=== PATIENT | female | born 1975 | race Caucasian/White ===

== ENCOUNTER 2020-01-16 20:48 | Observation (INO) | payer OTHER, SELFPAY ==
[2020-01-16 20:56] VITALS: BP 111/79; PULSE 81; RESP 15; TEMP 36.6; O2SAT 99
--- NOTE | 2020-01-16 21:09 | ED.GENADULT ---
HPI - General Adult General Chief complaint: Unspecified Stated complaint: FOOD BOLUS Time Seen by Provider: 01/16/20 20:53 History of Present Illness HPI narrative: Patient presents with her for a food bolus in her throat. It was steak. Happened about 6 PM. She vomited some of it. She has had this before. She has had multiple endoscopies and dilatation. Her GI doctor is in [facility]. She gauges the pain at 9 out of 10. She has MS. She has not been sick otherwise. She does not smoke cigarettes, rarely drinks alcohol, does not do drugs. Onset (ago): hour(s) Radiation: non-radiation Severity: severe Severity scale (1-10): 9 Pain Consistency: constant Relieving factors: none Exacerbating factors: other (Vomiting) Associated symptoms: denies other symptoms Related Data Home Medications Medication Instructions Recorded Confirmed dextroamphetamine-amphetamine 20 mg PO DAILY 01/16/20 [Adderall XR] gabapentin 200 mg PO TID 01/16/20 pantoprazole 40 mg PO DAILY 01/16/20 Allergies Allergy/AdvReac Type Severity Reaction Status Date / Time No Known Allergies Allergy Verified 01/16/20 21:29 Review of Systems Review of Systems: Narrative: CONSTITUTIONAL: Denies fever, chills, or sweats. EYES: Denies visual changes, redness, or discharge. ENT: Denies rhinorrhea, congestion, sore throat, or otalgia. CARDIOVASCULAR: She has chest pain at the lower sternum, but not palpitations, or edema. RESPIRATORY: Denies cough or dyspnea. GASTROINTESTINAL: Denies abdominal pain, nausea, vomiting, or diarrhea. GENITOURINARY: Denies dysuria or hematuria. SKIN: Denies rash or itching. MUSCULOSKELETAL: Denies back pain, joint pain, or myalgia. NEUROLOGIC: Denies headache, numbness, or weakness. . All systems reviewed & are unremarkable except as noted in HPI and below PMFSH Social History Social History (Updated 01/16/20 @ 21:12 by Vanessa Amos MD) Smoking status: Never smoker Alcohol intake: current Substance use: never Exam Narrative: Exam Narrative: GENERAL: Well-appearing, well-nourished, in moderate distress. Has a basin with saliva. HEAD: Normocephalic, atraumatic. EYES: PERRLA and EOMI. ENT: Nares clear, no rhinorrhea or epistaxis. Mucous membranes moist. NECK: Supple. CHEST: Clear to auscultation. No respiratory distress. HEART: Regular rate and rhythm. No murmur heard. Normal peripheral pulses. ABDOMEN: Soft, nontender, nondistended, normal active bowel sounds. EXTREMITIES: Normal range of motion. No edema. SKIN: Warm, dry, no rash. NEURO: No focal deficits. Alert and oriented x3. PSYCH: Normal mood and affect. Course Reevaluation(s) Reevaluation #1: Patient feels better after the first glucagon, she says the pressure has decreased, and she is not been spitting up anymore saliva. I challenged her with a drink of water, which only stayed down a short time before came back up. We will give the second dose of glucagon before calling the GI specialist. Date: 01/16/20 Time: 21:57 Consultations Consultation #1: Call Dr. Gilbert and he request the patient be put in under the hospitalist for overnight observation and he will see her in the morning. Date: 01/16/20 Time: 23:24 Consultation #2: Call Dr. Treadwell and she agrees with the observation admission for fluid bolus. Date: 01/16/20 Time: 23:25 Vital Signs Vital signs: Vital Signs Temperature 97.8 F 01/16/20 20:56 Pulse Rate 81 01/16/20 20:56 Respiratory Rate 15 01/16/20 20:56 Blood Pressure 111/79 01/16/20 20:56 Pulse Oximetry 99 01/16/20 20:56 Temperature 97.8 F 01/16/20 20:56 Pulse Rate 73 01/16/20 22:33 Respiratory Rate 16 01/16/20 22:33 Blood Pressure 114/81 01/16/20 22:33 Pulse Oximetry 100 01/16/20 22:33 Medical Decision Making Medical Records Medical records reviewed: Yes I reviewed the patient's medical records. Vital Signs Vital Signs: Vital Signs Temperature 97.8 F 01/16/20
[2020-01-16] MEDS: FAMOTIDINE 20 MG/2 ML VIAL IV PUSH (21:29)
[2020-01-16] MEDS: SODIUM CHLORIDE 0.9% IV 1,000 ML 250 ML IV CONT (21:29)
[2020-01-16] MEDS: GLUCAGON FOR INJ 1 MG VIAL IV PUSH (21:30)
[2020-01-16 21:41] LABS: Basophils Absolute Auto 0.1 K/mm3 (0.0-0.1); Basophils Percent Auto 0.8 % (0.2-1.2); Eosinophils Absolute Auto 0.4 K/mm3 (0-0.3); Eosinophils Percent Auto 4.8 % (0-4.4); Hematocrit 38.5 % (37.0-47.0); Immature Granulocyte Absolute 0.02 K/mm3 (0.00-0.031); Immature Granulocyte Percent A 0.2 % (0-0.5); Lymphocytes Absolute Auto 1.83 K/mm3 (0.9-3.2); Lymphocytes Percent Auto 19.9 % (18.3-44.2); Mean Corpuscular HGB Conc 33.8 g/dl (32-36); Mean Corpuscular Volume 91.9 fl (80-100); Mean Platelet Volume 11.1 fl (7.4-10.4); Monocytes Absolute Auto 0.5 K/mm3 (0.1-0.6); Monocytes Percent Auto 4.9 % (2.6-8.5); Neutrophils Absolute Auto 6.4 K/mm3 (1.3-6.7); Neutrophils Percent Auto 69.4 % (45.5-73.1); Platelet Count Result 267 k/mm3 (150-375); Red Blood Count 4.19 M/mm3 (4.2-5.4); Red Cell Distribution Width 12.9 % (11.5-14.5); White Blood Count 9.2 K/mm3 (4.5-10.0)
[2020-01-16 21:57] LABS: Alanine Aminotransferase 55 U/L (4-35); Albumin Level 4.2 g/dL (3.5-5.1); Alkaline Phosphatase 79 U/L (38-126); Anion Gap 9 mmol/L (8-16); Aspartate Amino Transferase 41 U/L (14-36); Bilirubin,Total 0.3 mg/dL (0.2-1.3); Blood Urea Nitrogen 17 mg/dL (7-17); Carbon Dioxide 24 mmol/L (22-30); Chloride 104 mmol/L (98-107); Estimated Glomerular Filt Rate > 60; Glucose 93 mg/dL (65-105); Potassium 3.8 mmol/L (3.4-5.0); Sodium 137 mmol/L (137-145)
[2020-01-16] MEDS: GLUCAGON FOR INJ 1 MG VIAL IM (21:58)
[2020-01-16 22:13] LABS: Calcium 9.3 mg/dL (8.4-10.2)
[2020-01-16 22:33] VITALS: BP 114/81; PULSE 73; RESP 16; O2SAT 100
[2020-01-16] MEDS: DEXTROSE 5%/0.9% SOD CHL 1,000 ML 100 ML IV CONT (23:22)
[2020-01-16] MEDS: MORPHINE SULFATE 4 MG/ML INJ IV PUSH (23:23)
[2020-01-16 23:30] VITALS: BP 135/80; PULSE 83; RESP 18; O2SAT 100
[2020-01-17] VITALS (10 sets, daily range): BP systolic 92–135; BP diastolic 52–70; PULSE 66–83; RESP 14–21; TEMP 36.3–37; O2SAT 98–100; BMI 29.0
--- NOTE | 2020-01-17 00:32 | ADMGEN ---
This patient, Selma Morgan, was admitted to 3 [facility] 345-. Patient/family oriented to hospital policies and general routines including ID bracelet, bed and alarms, visiting hours, pain management, procedures, bathroom and other care routines, personal items, smoking policy, room service/diet, and visiting hours. Valuables list has been completed. Information on how to activate the Rapid Response Team has been discussed. Patient/Family are encouraged to report perceived risks to care and to ask questions if they do not understand what they are told or what they should do.
[2020-01-17] MEDS: MORPHINE SULFATE 4 MG/ML INJ IV PUSH (02:40)
[2020-01-17] MEDS: ONDANSETRON INJ 4 MG/2 ML VIAL IV PUSH (02:41)
--- NOTE | 2020-01-17 09:34 | WPDGICN ---
Assessment and Plan Assessment and plan (1) Food impaction of esophagus: Qualifiers: Encounter type: initial encounter Qualified Code(s): T18.128A - Food in esophagus causing other injury, initial encounter Code(s): T18.128A - Food in esophagus causing other injury, initial encounter Status: Acute Assessment and Plan: Patient has a food impaction unable to eat or swallow. Plan is for EGD today. Further recommendations after endoscopy. (2) Dysphagia: Code(s): R13.10 - Dysphagia, unspecified Status: Acute Assessment and Plan: Patient has a history of recurrent difficulty swallowing. Known to have esophageal stricture ring in the past. This been attributed to what sounds like eosinophilic esophagitis. Plan is to continue proton pump inhibitor. Further recommendations after endoscopy. Old records not immediately available. (3) Eosinophilic esophagitis: Code(s): K20.0 - Eosinophilic esophagitis Status: Acute (4) Multiple sclerosis: Code(s): G35 - Multiple sclerosis Status: Acute GI Consult Note Consult date/time: 01/17/20 09:34 HPI: Selma Morgan is a 44 year old female Seen in evaluation at the request of the emergency room. Patient in usual state of health till last evening on eating dinner had a piece of food stuck in the mid substernal portion of the chest. she subsequently was unable to eat or swallow any additional intake. She presented the emergency room and was admitted for observation. She does have a past medical history of esophagitis. She has a known history of esophageal stricture ring as required esophageal dilatation in the past. She often will have food passed slowly through the esophagus. Her last endoscopy for dilatation was approximately 1 year ago. She was told that she had an allergic type esophageal reaction. She has been told to take proton pump inhibitors on a regular basis at home. She denies any weight loss or bleeding. She has no specific known allergies. Review of Systems Review of Systems: All systems reviewed & are unremarkable except as noted in HPI and below PMFSH Social History Social History Smoking status: Never smoker Second hand tobacco smoke exposure: No Alcohol intake: former Substance use: current Substance use type: marijuana Other substance usage details: medical marijuana Gender identity (if verbalized by the patient): Female Spiritual care concerns: No Meds Home Medications and Allergies Home Medications Medication Instructions Recorded Confirmed Type dextroamphetamine-amphetamine 20 mg PO DAILY 01/16/20 01/17/20 History [Adderall XR] gabapentin 200 mg PO TID 01/16/20 01/17/20 History pantoprazole 40 mg PO DAILY 01/16/20 01/17/20 History Allergies Allergy/AdvReac Type Severity Reaction Status Date / Time No Known Allergies Allergy Verified 01/16/20 21:29 Vital Signs Vital Signs - 24 hr 01/16/20 20:56 01/16/20 22:33 01/16/20 23:30 Temperature 97.8 F Pulse Rate 81 73 83 Respiratory Rate 15 16 18 Blood Pressure 111/79 114/81 135/80 Pulse Oximetry 99 100 100 01/17/20 00:46 01/17/20 05:38 Temperature 97.4 F L 97.7 F Pulse Rate 70 82 Respiratory Rate 16 16 Blood Pressure 135/70 92/52 L Pulse Oximetry 100 100 Exam Narrative: Exam Narrative: Physical exam reveals patient to be alert. Currently comfortable at rest. HEENT exam reveals her to be anicteric. She is alert. Lungs are clear. Heart without murmur. Abdomen bowel sounds are present soft nontender with no organomegaly. Digital rectal exam deferred at this time. Results Labs CBC & Chem 7: 01/16/20 21:35 01/16/20 21:35 Labs: Short CBC 01/16/20 Range/Units 21:35 WBC 9.2 (4.5-10.0) K/mm3 Hgb 13.0 (12.0-15.0) g/dL Hct 38.5 (37.0-47.0) % Plt Count 267 (150-375) k/mm3 B
--- NOTE | 2020-01-17 09:55 | PC.NURSE ---
To GI Lab via [employer].
[2020-01-17] MEDS: LACTATED RINGERS 1,000 ML 150 ML IV CONT (10:12)
--- NOTE | 2020-01-17 11:32 | WPDANESEPPF ---
Anes - Initial Pre Proc Eval Procedure: Operation Date: 01/17/20 11:00 Proposed Procedures p Esophagogastroduodenoscopy - Jacques Gilbert MD Date/Time: 01/17/20 11:32 Surgeon: Yulisa Davis PA-C Pre Op Diagnosis: food impaction Patient Data Age: 44 Gender: F Height: 5 ft 3 in Weight: 74.3 kg Last Vital Signs Temp 98.6 F 01/17/20 09:59 Pulse 72 01/17/20 09:59 Resp 18 01/17/20 09:59 BP 100/61 01/17/20 09:59 Pulse Ox 98 01/17/20 09:59 Allergies Allergy/AdvReac Type Severity Reaction Status Date / Time No Known Allergies Allergy Verified 01/16/20 21:29 Home Medications Medication Instructions Recorded Confirmed Type dextroamphetamine-amphetamine 20 mg PO DAILY 01/16/20 01/17/20 History [Adderall XR] gabapentin 200 mg PO TID 01/16/20 01/17/20 History pantoprazole 40 mg PO DAILY 01/16/20 01/17/20 History Laboratory Tests 01/16/20 01/16/20 21:35 21:35 WBC 9.2 K/mm3 K/mm3 (4.5-10.0) RBC 4.19 M/mm3 L M/mm3 (4.2-5.4) Hgb 13.0 g/dL g/dL (12.0-15.0) Hct 38.5 % % (37.0-47.0) MCV 91.9 fl fl (80-100) MCH 31.0 pg pg (26-34) MCHC 33.8 g/dl g/dl (32-36) RDW 12.9 % % (11.5-14.5) Plt Count 267 k/mm3 k/mm3 (150-375) MPV 11.1 fl H fl (7.4-10.4) Immature Gran % (Auto) 0.2 % % (0-0.5) Neut % (Auto) 69.4 % % (45.5-73.1) Lymph % (Auto) 19.9 % % (18.3-44.2) [place] % (Auto) 4.9 % % (2.6-8.5) Eos % (Auto) 4.8 % H % (0-4.4) Baso % (Auto) 0.8 % % (0.2-1.2) Lymph # (Auto) 1.83 K/mm3 K/mm3 (0.9-3.2) [place] # (Auto) 0.5 K/mm3 K/mm3 (0.1-0.6) Eos # (Auto) 0.4 K/mm3 H K/mm3 (0-0.3) Baso # (Auto) 0.1 K/mm3 K/mm3 (0.0-0.1) Abs Immat Gran (auto) 0.02 K/mm3 K/mm3 (0.00-0.031) Absolute Neuts (auto) 6.4 K/mm3 K/mm3 (1.3-6.7) Absolute Nucleated RBC 0.0 K/mm3 K/mm3 (0.0-0.012) Nucleated RBC % 0.0 % % (0.0-0.2) Sodium 137 mmol/L mmol/L (137-145) Potassium 3.8 mmol/L mmol/L (3.4-5.0) Chloride 104 mmol/L mmol/L (98-107) Carbon Dioxide 24 mmol/L mmol/L (22-30) Anion Gap 9 mmol/L mmol/L (8-16) BUN 17 mg/dL mg/dL (7-17) Creatinine 0.60 mg/dL L mg/dL (0.7-1.0) Estim Creat Clear Calc Not Reportable Estimated GFR > 60 (59 - ) Glucose 93 mg/dL mg/dL (65-105) Calcium 9.3 mg/dL mg/dL (8.4-10.2) Total Bilirubin 0.3 mg/dL mg/dL (0.2-1.3) AST 41 U/L H U/L (14-36) ALT 55 U/L H U/L (4-35) Alkaline Phosphatase 79 U/L U/L (38-126) Total Protein 7.0 g/dL g/dL (6.3-8.2) Albumin 4.2 g/dL g/dL (3.5-5.1) Patient hx anesthesia problems: none Family hx anesthesia problems: none [facility] Past Medical History Medical History (Updated 01/17/20 @ 11:31 by Beny Albright MD) Multiple sclerosis Social History Social History Smoking status: Never smoker Second hand tobacco smoke exposure: No Alcohol intake: former Substance use: current Substance use type: marijuana Other substance usage details: medical marijuana Gender identity (if verbalized by the patient): Female Spiritual care concerns: No Anes - Eval Final PreProcedure Day of Procedure 01/17/20 11:32 Patient weight: normal Heart: regular rate and rhythm Lungs: clear to auscultation Airway: Mallampati scale class II Neurological: alert and oriented Last oral intake: >/= 8 hours ASA classification: II Emergent: no Anesthetic plan: proceed Anesthesia type and monitoring: general GIVS and standard monitoring Informed Consent: The patient's anesthetic plan and its attendant risks and benefits were discussed with the patient/family/POA. Questions were solicited and answers provided to the satisfaction of the patient/family/POA.
--- NOTE | 2020-01-17 12:55 | PC.NURSE ---
Returned from GI Lab via stretcher.
[2020-01-17] MEDS: PANTOPRAZOLE 40 MG TABLET PO (14:09)
--- NOTE | 2020-01-17 15:01 | PM.SD ---
Same Day Admit/Disch: HPI History of Present Illness Chief complaint: food impaction Narrative: Selma Morgan is a 44 year old female with a history of eosinophilic esophagitis, status post multiple EGDs and dilation of her esophagus, MS, who presented to the emergency department after she had food stuck in her throat. The patient states last night she was cooking steak for dinner and she took 1 bite while she was getting her children's food ready and she instantly felt that the food got stuck in her throat. She tried coughing up the food and got only pieces. Otherwise was having some chest pressure, shortness of breath, unable to swallow liquids or her saliva. She decided to come to the emergency room for further evaluation and treatment. She denies much nausea but had been having vomiting trying to get the food up. She denies any fevers, chills, abdominal pain, diarrhea, constipation, leg swelling, calf pain, lightheadedness, dizziness, urinary symptoms or any other symptoms this time. Initial vitals showed temperature of 97.8?, blood pressure 111/79, heart rate 81, respiratory rate 15, oxygen saturation 99% on room air. Initial labs showed normal CBC with differential other than elevated eosinophils. CMP was normal other than slightly elevated LFTs with an AST of 41, ALT at 55. The patient was admitted into the hospital for further evaluation by GI specialist. code status: full code power of assistant county attorney: PMF Past Medical History Medical History Eosinophilic esophagitis Multiple sclerosis Surgical History Surgical History History of esophagogastroduodenoscopy (EGD) Hx of colonoscopy Hx of hysterectomy Family History Family History Father Acute myocardial infarction TIA (transient ischemic attack) Mother Eosinophilic esophagitis Social History Social History Smoking status: Never smoker Second hand tobacco smoke exposure: No Alcohol intake: former Substance use: current Substance use type: marijuana Other substance usage details: medical marijuana Living arrangements: with family Additional living arrangements comments: Lives with and children in [place], [place] Additional occupation/education comments: 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 Gender identity (if verbalized by the patient): Female Sexual Orientation (if Verbalized by the Patient): Straight or Heterosexual Spiritual care concerns: No Same Day Admit/Disch: Med Pre-admit Medications Home Medications Medication Instructions Recorded Confirmed Type dextroamphetamine-amphetamine 20 mg PO DAILY 01/16/20 01/17/20 History [Adderall XR] gabapentin 200 mg PO TID 01/16/20 01/17/20 History pantoprazole 40 mg PO DAILY 01/16/20 01/17/20 History Exam Narrative: Exam Narrative: General: 44-year-old woman laying flat in bed with head elevated at 45 degrees watching TV with at bedside. Appears comfortable. In no acute distress. Skin: No jaundice or cyanosis. Good skin turgor. Neck: Full range of motion. Supple. Respiratory: Lungs are clear to auscultation bilaterally. No bony chest wall tenderness. Cardiovascular: The heart has a regular rate and rhythm without murmur. No carotid bruits. Lower extremities: No lower extremity edema. Distal pulses are easily palpated. No calf tenderness to palpation. Gastrointestinal: The abdomen is soft, nontender and nondistended with active bowel sounds. Psychiatric: Lucid and oriented. Memory intact. Neurologic: No focal deficits. Speech is clear. No facial drooping. DS: Data Data Completed and Pending Labs on day of discharge: Labs from last 24 hours 01/16/20 01/16/20 21:35 21:35 WBC 9.2 RBC 4.19
== END 2020-01-17 16:20 | disposition home or self-care (01) ==
LOC: ANHED 23:01 → ANH3MED 23:21
PROVIDERS: Internal Medicine Gastroenterology; Admitting Provider Internal Medicine; Emergency Provider Emergency Medicine; PCP Nurse Practitioner Family; Visit Provider Internal Medicine
PROC: 0DJ08ZZ Inspection of Upper Intestinal Tract, Via Natural or Artificial Opening Endoscopic (ICD-10-PCS; CPT 43235; principal; 2020-01-17 11:00)
DX: T18.128A Food in esophagus causing other injury, initial encounter (principal); R13.10 Dysphagia, unspecified; K22.2 Esophageal obstruction; K20.0 Eosinophilic esophagitis; G35 Multiple sclerosis
CPT/HCPCS: 43247; 36415; 80053; 85025; 96361; 96372; 96374; 96375; 99285; A9270; G0378; J1610; J2270; J2405; J2704; J7030; J7042; J7120

== ENCOUNTER 2023-03-13 09:49 | Outpatient (CLI) | payer OTHER, SELFPAY ==
--- NOTE | ~2023-03-13 | CT_ITS ---
EXAMINATION: CT facial bones wo con DATE: 03/13/2023 10:15 INDICATION: Right jaw pain and swelling. TECHNIQUE: Computed tomography (CT) of the facial bones and maxillofacial region was performed withou t intravenous contrast. Automated exposure control and iterative reconstruction technique were employ ed. The dose-length product was 414.29 mGy-cm. COMPARISON: None. FINDINGS: There is mild mucosal thickening in left maxillary sinus. There is a broken right maxillary molar with periapical lucencies. There are carious lesions of 8 and 9. 12 is broken with periapical lucencies. There are 2 broken left maxillary molars with periapical lucencies. There are 2 broken lef t mandibular molars with periapical lucencies. There is a broken right maxillary premolar with periap ical lucencies and changes of root canal procedure. There is a carious lesion of 30 with periapical l ucencies. There is a carious lesion of 31. IMPRESSION: 1. Extensive dental disease. Reviewed, dictated and finalized at location E.
== END 2023-03-13 09:50 | disposition home or self-care (01) ==
LOC: CHSIMG 09:51
PROVIDERS: PCP Family Medicine; Visit Provider Physician Assistant
DX: K08.9 Disorder of teeth and supporting structures, unspecified (principal); R68.84 Jaw pain
CPT/HCPCS: 70486